=== PATIENT | female | born 1955 | race Caucasian/White ===

== ENCOUNTER 2020-04-22 09:38 | Inpatient (IN) ==
[2020-04-22 10:17] LABS: Hematocrit 23 % (35-47); Hemoglobin 6.4 g/dL (12.0-16.0); Mean Corpuscular HGB Conc 28 g/dL (31-36); Mean Corpuscular Hemoglobin 18 pg (27-31); Mean Corpuscular Volume 62 fL (80-97); Mean Platelet Volume 6.8 fL (7.4-10.4); Platelet Count 411 10^3/uL (150-450); Red Blood Count 3.65 10^6 /uL (3.70-4.87); Red Cell Distribution Width 20 % (10-15); White Blood Count 5.2 10^3/uL (3.5-10.8)
[2020-04-22 10:29] LABS: ALT 12 U/L (7-52); AST 12 U/L (13-39); Albumin 3.2 g/dL (3.2-5.2); Albumin/Globulin Ratio 1.7 (1-3); Alkaline Phosphatase 70 U/L (34-104); Anion Gap 8 mmol/L (2-11); BUN/Creatinine Ratio 20.3 (8-20); Blood Urea Nitrogen 12 mg/dL (6-24); CO2 Carbon Dioxide 23 mmol/L (22-32); Calcium 8.5 mg/dL (8.6-10.3); Chloride 107 mmol/L (101-111); EGFR African American 123.4 (>60); Globulin 1.9 g/dL (2-4); Glucose 115 mg/dL (70-100); Magnesium 1.9 mg/dL (1.9-2.7); Potassium 3.8 mmol/L (3.5-5.0); Sodium 138 mmol/L (135-145); Total Protein 5.1 g/dL (6.4-8.9)
[2020-04-22 10:48] LABS: Microcytosis 3+
[2020-04-22 10:51] LABS: ABS Neutrophils 3.8 10^3/ul (1.5-7.7)
[2020-04-22 10:52] LABS: ABS Basophils 0.2 10^3/ul (0-0.2)
[2020-04-22 11:08] LABS: TSH Ultra Thyroid Stim Horm 1.13 mcIU/mL (0.34-5.60)
[2020-04-22] MEDS ORDERED: Morphine 4 MG/ML VIAL (1 ml) IV ONE (11:57)
[2020-04-22 12:20] LABS: C Reactive Protein 6.69 mg/L (<8.01)
[2020-04-22 12:21] LABS: Total Iron Binding Capacity 403 mcg/dL (250-450); Transferrin 288 mg/dL (203-362)
[2020-04-22 12:24] LABS: % Iron Saturation 5 % (15-55); Ferritin 2.2 ng/mL (11-307); Iron < 20 ug/dL (50-212); Unsaturated Iron Binding < 388 ug/dL
[2020-04-22 12:28] LABS: Vitamin B12 108 pg/mL (180-914)
[2020-04-22 14:18] LABS: Urine Appearance Clear; Urine Bilirubin Negative (Negative); Urine Blood Negative (Negative); Urine Color Yellow; Urine Glucose Negative (Negative); Urine Ketones Trace (Negative); Urine Nitrite Negative (Negative); Urine Protein Negative (Negative); Urine Specific Gravity 1.021 (1.010-1.030); Urine Urobilinogen Negative (Negative)
[2020-04-22] MEDS ORDERED: Iron Sucrose 200 MG in NS 0.9% 100 ml BAG 100 ML IVPB ONE (14:42)
[2020-04-22] MEDS: Ondansetron 4 mg VIAL 2 MG/ML 2 ml VIAL IV PRN ×2 (15:02→20:37)
[2020-04-22 15:23] LABS: Folate > 20.00 ng/mL (>3.99)
[2020-04-22 16:16] LABS: Hematocrit 24 % (35-47)
[2020-04-23] MEDS: Ondansetron 4 mg VIAL 2 MG/ML 2 ml VIAL IV PRN ×4 (03:49→23:36)
[2020-04-23 08:47] LABS: Hematocrit 27 % (35-47); Mean Corpuscular HGB Conc 30 g/dL (31-36); Mean Corpuscular Hemoglobin 20 pg (27-31); Mean Corpuscular Volume 67 fL (80-97); Mean Platelet Volume 6.5 fL (7.4-10.4); Platelet Count 322 10^3/uL (150-450); Red Blood Count 4.03 10^6 /uL (3.70-4.87); Red Cell Distribution Width 25 % (10-15); White Blood Count 4.1 10^3/uL (3.5-10.8)
[2020-04-23 08:59] LABS: BUN/Creatinine Ratio 17.4 (8-20); Calcium 8.3 mg/dL (8.6-10.3); EGFR African American 164.5 (>60); EGFR Non-African American 135.9 (>60); Potassium 4.3 mmol/L (3.5-5.0)
[2020-04-23 09:24] LABS: Microcytosis 2+; Polychromasia 1+
[2020-04-23 09:26] LABS: ABS Eosinophils 0.2 10^3/ul (0-0.6); ABS Neutrophils 2.6 10^3/ul (1.5-7.7)
[2020-04-23] MEDS ORDERED: Iron Sucrose 200 MG in NS 0.9% 100 ml BAG 100 ML IVPB ONE (11:00)
[2020-04-23] MEDS: HYDROcodone/ACETAMIN 5/325 mg TAB PO PRN ×2 (15:53→20:26)
[2020-04-24] MEDS: HYDROcodone/ACETAMIN 5/325 mg TAB PO PRN ×3 (03:10→19:33)
[2020-04-24] MEDS ORDERED: Influenza VAC *QUAD* 2020-21* 0.5 ML SYRINGE IM ONE (09:00)
[2020-04-24] MEDS ORDERED: Iron Sucrose 200 MG in NS 0.9% 100 ml BAG 100 ML IVPB ONE (09:00)
[2020-04-24 09:06] LABS: Hematocrit 27 % (35-47); Hemoglobin 8.1 g/dL (12.0-16.0); Mean Corpuscular HGB Conc 30 g/dL (31-36); Mean Corpuscular Hemoglobin 21 pg (27-31); Mean Corpuscular Volume 68 fL (80-97); Mean Platelet Volume 6.6 fL (7.4-10.4); Platelet Count 337 10^3/uL (150-450); Red Blood Count 3.93 10^6 /uL (3.70-4.87); Red Cell Distribution Width 26 % (10-15); White Blood Count 5.3 10^3/uL (3.5-10.8)
[2020-04-24 09:07] LABS: ABS Eosinophils 0.1 10^3/ul (0-0.6); ABS Lymphocytes 1.7 10^3/ul (1.0-4.8); ABS Monocytes 0.5 10^3/ul (0-0.8); ABS Neutrophils 2.9 10^3/ul (1.5-7.7); Eosinophil % 2.1 %; Nucleated Red Blood Cells % 0.7
[2020-04-24] MEDS: Ondansetron 4 mg VIAL 2 MG/ML 2 ml VIAL IV PRN ×2 (09:23→19:33)
[2020-04-24] MEDS: Sucralfate 1 gm SUSP 1 GM/10 ML UDC PO SCH ×3 (11:40→19:50)
[2020-04-24] MEDS ORDERED: HYDROcodone/ACETAMIN 5/325 mg TAB PO PRN (12:23)
[2020-04-24] MEDS: Senna TAB 8.6 mg TAB PO SCH (19:34)
[2020-04-25] MEDS: HYDROcodone/ACETAMIN 5/325 mg TAB PO PRN ×5 (00:48→20:23)
[2020-04-25] MEDS: Ondansetron 4 mg VIAL 2 MG/ML 2 ml VIAL IV PRN ×3 (04:47→20:24)
[2020-04-25] MEDS: Sucralfate 1 gm SUSP 1 GM/10 ML UDC PO SCH ×4 (07:47→20:24)
[2020-04-25] MEDS: Magnesium Hydroxide LIQ 30 ML UDC PO PRN ×2 (09:04→20:24)
[2020-04-25 15:35] LABS: ABS Eosinophils 0.1 10^3/ul (0-0.6); ABS Lymphocytes 1.4 10^3/ul (1.0-4.8); ABS Monocytes 0.5 10^3/ul (0-0.8); ABS Neutrophils 2.6 10^3/ul (1.5-7.7); Eosinophil % 2.8 %; Hematocrit 28 % (35-47); Hemoglobin 8.2 g/dL (12.0-16.0); Lymphocyte % 29.8 %; Mean Corpuscular HGB Conc 29 g/dL (31-36); Mean Corpuscular Hemoglobin 20 pg (27-31); Mean Corpuscular Volume 69 fL (80-97); Mean Platelet Volume 6.7 fL (7.4-10.4); Nucleated Red Blood Cells % 0.1; Platelet Count 345 10^3/uL (150-450); Red Blood Count 4.04 10^6 /uL (3.70-4.87); Red Cell Distribution Width 26 % (10-15); White Blood Count 4.5 10^3/uL (3.5-10.8)
[2020-04-25] MEDS ORDERED: Iron Sucrose 200 MG in NS 0.9% 100 ml BAG 100 ML IVPB ONE ×2 (15:43→16:15)
[2020-04-25 15:46] LABS: BUN/Creatinine Ratio 12.1 (8-20); Calcium 8.1 mg/dL (8.6-10.3); EGFR African American 125.9 (>60); Potassium 4.2 mmol/L (3.5-5.0)
[2020-04-25] MEDS: Lidocaine PATCH 5% PATCH TRANSDERM SCH (18:42)
[2020-04-25] MEDS: Senna TAB 8.6 mg TAB PO SCH (20:23)
[2020-04-25] MEDS: Ondansetron ODT 4 mg TAB 4 MG TAB SL PRN (21:11)
[2020-04-26] MEDS: HYDROcodone/ACETAMIN 5/325 mg TAB PO PRN ×3 (01:32→19:53)
[2020-04-26] MEDS: Ondansetron 4 mg VIAL 2 MG/ML 2 ml VIAL IV PRN ×3 (04:23→19:53)
[2020-04-26] MEDS ORDERED: Lidocaine Patch REMOVE PATCH PATCH OFF ONE (06:00)
[2020-04-26] MEDS: Sucralfate 1 gm SUSP 1 GM/10 ML UDC PO SCH ×4 (08:19→19:53)
[2020-04-26] MEDS: Lidocaine PATCH 5% PATCH TRANSDERM SCH (08:35)
[2020-04-26] MEDS ORDERED: Iron Sucrose 200 MG in NS 0.9% 100 ml BAG 100 ML IVPB ONE (13:00)
[2020-04-26] MEDS: Senna TAB 8.6 mg TAB PO SCH (19:53)
[2020-04-26] MEDS: Lidocaine Patch REMOVE PATCH PATCH OFF SCH (21:50)
[2020-04-27] MEDS: HYDROcodone/ACETAMIN 5/325 mg TAB PO PRN ×3 (00:46→21:20)
[2020-04-27] MEDS: Sucralfate 1 gm SUSP 1 GM/10 ML UDC PO SCH ×4 (07:34→21:17)
[2020-04-27] MEDS: Lidocaine PATCH 5% PATCH TRANSDERM SCH (07:37)
[2020-04-27] MEDS: Magnesium Hydroxide LIQ 30 ML UDC PO PRN (07:41)
[2020-04-27] MEDS: Ondansetron ODT 4 mg TAB 4 MG TAB SL PRN ×3 (07:55→21:21)
[2020-04-27] MEDS: Senna TAB 8.6 mg TAB PO SCH (21:15)
[2020-04-27] MEDS: Lidocaine Patch REMOVE PATCH PATCH OFF SCH (21:17)
[2020-04-28 06:14] LABS: BUN/Creatinine Ratio 14.5 (8-20); Calcium 8.3 mg/dL (8.6-10.3); EGFR African American 116.5 (>60); EGFR Non-African American 96.3 (>60); Potassium 4.1 mmol/L (3.5-5.0)
[2020-04-28 07:30] VITALS: BP 146/68
[2020-04-28] MEDS: Lidocaine PATCH 5% PATCH TRANSDERM SCH (08:00)
[2020-04-28] MEDS: Sucralfate 1 gm SUSP 1 GM/10 ML UDC PO SCH (08:02)
[2020-04-28] MEDS: HYDROcodone/ACETAMIN 5/325 mg TAB PO PRN (08:06)
[2020-04-28] MEDS: Ondansetron ODT 4 mg TAB 4 MG TAB SL PRN (08:07)
== END 2020-04-28 10:55 | disposition home or self-care (01) | DRG 811 ==
LOC: ED 09:38 → MED 11:28
PROVIDERS: ADMIT Hospitalist; ATTEND Internal Medicine

== ENCOUNTER 2020-06-26 05:34 | Inpatient (IN) ==
[2020-06-26] MEDS ORDERED: Buffered Lidocaine 1% SYRIN 1 ml INTRADERM ONE ×2 (06:00→06:17)
[2020-06-26] MEDS ORDERED: Lactated Ringers 1000 ml BAG 1,000 ML IV SCH (06:00)
[2020-06-26] MEDS ORDERED: ceFAZolin 2 GM PREMIX 2 GM/50 ML BAG ONE (06:17)
[2020-06-26] MEDS ORDERED: Dexmedetomidine 200 mcg/2 ml 2 ml VIAL (200 mcg) ONE (06:59)
[2020-06-26] MEDS ORDERED: ROPIVACAINE 5 MG/ML 30 ML BTL (0.5%) ONE ×2 (06:59→07:11)
[2020-06-26] MEDS ORDERED: Lidocaine 2% PF 5 ML VIAL ONE ×2 (06:59→07:14)
[2020-06-26] MEDS ORDERED: Midazolam 2 mg/2 ml VIAL 1 mg/ml 2 ml VIAL (2 mg) ONE ×3 (07:00→09:51)
[2020-06-26] MEDS ORDERED: Rocuronium 50 mg VIAL 10 mg/ml 5 ml VIAL (50 mg) ONE (07:14)
[2020-06-26] MEDS ORDERED: fentaNYL 250 mcg/5 ml 50 MCG/ML 5 ml VIAL (250 MCG) ONE (07:14)
[2020-06-26] MEDS ORDERED: Propofol 10 MG/ML 20 ML BTL ONE (07:14)
[2020-06-26] MEDS ORDERED: Dexamethasone IV 4 MG/ML VIAL 1 ml VIAL ONE (08:18)
[2020-06-26] MEDS ORDERED: EPHEDrine (Pressors) 50 MG/ML VIAL ONE ×2 (08:18→08:22)
[2020-06-26] MEDS ORDERED: Phenylephrine 40 mcg/mL 10mL (400mcg) SYRINGE ONE (08:23)
[2020-06-26] MEDS ORDERED: Naloxone 0.4 mg VIAL 0.4 mg/ml 1 ml VIAL IV PRN (09:21)
[2020-06-26] MEDS ORDERED: DiMENhydriNATE IV 50 mg/ml 1 ml VIAL IV PUSH PRN (09:21)
[2020-06-26] MEDS ORDERED: HYDROmorphone 1 MG/1 ML SYRINGE IV PRN (09:21)
[2020-06-26] MEDS ORDERED: Ondansetron 4 mg VIAL 2 MG/ML 2 ml VIAL ONE (09:23)
[2020-06-26] MEDS ORDERED: Acetaminophen IV 1 GM/100ML 100 ML ONE (09:23)
[2020-06-26] MEDS ORDERED: HYDROmorphone 1 MG/1 ML SYRINGE ONE (09:30)
[2020-06-26] MEDS ORDERED: diPHENhydraMINE IV 50 MG/ML 1 ml VIAL (BENADRYL) IV PRN (10:31)
[2020-06-26] MEDS ORDERED: Ondansetron 4 mg VIAL 2 MG/ML 2 ml VIAL IV PRN (10:31)
[2020-06-26] MEDS ORDERED: Lactulose 30 ml UDC PO PRN (10:31)
[2020-06-26] MEDS ORDERED: Ondansetron ODT 4 mg TAB 4 MG TAB PO PRN (10:31)
[2020-06-26] MEDS ORDERED: diPHENhydraMINE 25 mg TAB PO PRN (10:31)
[2020-06-26] MEDS ORDERED: Morphine 2 MG/ML SYRINGE IV PRN (10:31)
[2020-06-26] MEDS ORDERED: Magnesium Hydroxide LIQ 30 ML UDC PO PRN (10:31)
[2020-06-26] MEDS: Lactated Ringers 1000 ml BAG 1,000 ML IV SCH ×2 (12:21→22:50)
[2020-06-26] MEDS: ceFAZolin 1 GM ADVAN 1 GM in NS 0.9% 50 ML 50 ML IVPB SCH (16:03)
[2020-06-26] MEDS: Magnesium Hydroxide LIQ 30 ML UDC PO SCH (20:46)
[2020-06-27] MEDS: ceFAZolin 1 GM ADVAN 1 GM in NS 0.9% 50 ML 50 ML IVPB SCH ×2 (00:09→07:22)
[2020-06-27 06:18] LABS: Hematocrit 29 % (35-47); Hemoglobin 9.5 g/dL (12.0-16.0); Mean Platelet Volume 6.2 fL (7.4-10.4); Platelet Count 243 10^3/uL (150-450)
[2020-06-27 06:34] LABS: BUN/Creatinine Ratio 20.8 (8-20); Calcium 8.2 mg/dL (8.6-10.3); EGFR African American 139.2 (>60); EGFR Non-African American 115.1 (>60); Potassium 3.7 mmol/L (3.5-5.0)
[2020-06-27] MEDS: Vitamin THERAPEUTIC TAB PO SCH (08:39)
[2020-06-27] MEDS: Magnesium Hydroxide LIQ 30 ML UDC PO SCH ×2 (08:39→21:23)
[2020-06-28 05:05] LABS: Hematocrit 26 % (35-47); Hemoglobin 8.6 g/dL (12.0-16.0); Mean Platelet Volume 6.2 fL (7.4-10.4); Platelet Count 217 10^3/uL (150-450)
[2020-06-28] MEDS: Magnesium Hydroxide LIQ 30 ML UDC PO SCH ×2 (08:33→21:13)
[2020-06-28] MEDS: Vitamin THERAPEUTIC TAB PO SCH (08:33)
[2020-06-28] MEDS ORDERED: Polyethylene Glycol 3350 17 GM PACKET PO PRN (08:43)
[2020-06-29 05:55] LABS: Hematocrit 28 % (35-47); Mean Platelet Volume 6.1 fL (7.4-10.4); Platelet Count 223 10^3/uL (150-450)
[2020-06-29 08:01] VITALS: BP 124/63
[2020-06-29] MEDS: Vitamin THERAPEUTIC TAB PO SCH (08:48)
[2020-06-29] MEDS: Magnesium Hydroxide LIQ 30 ML UDC PO SCH (08:49)
== END 2020-06-29 11:00 | disposition home health service (06) | DRG 469 ==
LOC: INTOOBSV 05:34 → AA 05:34 → SSU 10:31
PROVIDERS: ADMIT Orthopaedic Surgery Adult Reconstructive Orthopaedic Surgery; ATTEND Orthopaedic Surgery Adult Reconstructive Orthopaedic Surgery